=== PATIENT | male | born 1970 | race Caucasian/White ===

== ENCOUNTER 2020-11-29 23:02 | Emergency (ER) | payer OTHER ==
[~2020-11-29 23:02] MED LIST: ETODOLAC500 MG PO; FLEXERIL5 MG PO; IBUPROFEN800 MG PO; MEDROL 4MG DOSEP4 MG PO; MINIPRESS2 MG PO; NAPROXEN500 MG PO; NORCO 5-325 TA1 EACH PO; PRINIVIL20 MG PO
[2020-11-30 00:43] LABS: BASOPHIL 0.1 % (0-2); EOSINOPHIL 0 % (0-5); HCT 48.1 % (42.0-52.0); HGB 15.8 g/dl (13.2-18.0); LYMPHOCYTE 9.9 % (15-48); MCH 29.8 pg (25.0-31.0); MCHC 32.8 g/dL (32.0-36.0); MCV 90.8 fL (78.0-100.0); MONOCYTE 3.3 % (0-12); MPV 10.9 fL (6.0-9.5); NEUTROPHIL 86.2 % (41-80); NRBC 0; PLT 276 K/uL (150-400); RDW 13.5 % (11.5-14.0)
[2020-11-30 00:49] LABS: PRO-BNP 583 pg/mL (<125)
[2020-11-30 00:51] LABS: ALBUMIN 3.6 g/dL (3.4-5.0); BILIRUBIN - TOTAL 0.4 mg/dL (0.2-1.0); BUN/CREAT RATIO (CALC) 17.9 RATIO; CREATININE 0.67 mg/dL (0.67-1.17); GLOBULIN (CALCULATION) 4.6 g/dL; TOTAL PROTEIN 8.2 g/dL (6.4-8.2)
[2020-11-30 01:02] LABS: LACTIC ACID 1.9 mmol/L (0.4-1.9)
[2020-11-30 01:42] LABS: CORONAVIRUS 2019 SARS-COV-2 NEGATIVE (NEGATIVE); INFLUENZA A NAA NEGATIVE (NEGATIVE)
[2020-11-30 04:10] LABS: BILIRUBIN NEGATIVE (NEGATIVE); BLOOD TRACE-INTACT Ery/uL (NEGATIVE); CLARITY CLEAR (CLEAR); COLOR YELLOW (YELLOW); GLUCOSE (U) NORMAL (NORMAL); LEUKOCYTES TRACE Leu/uL (NEGATIVE); NITRITE NEGATIVE (NEGATIVE); PROTEIN NEGATIVE (NEGATIVE); SPECIFIC GRAVITY 1.015 (1.001-1.030); UROBILINOGEN 0.2 mg/dL (0.2-1.0)
[2020-11-30 04:22] LABS: URINARY RBC RARE
[2020-11-30 04:23] LABS: BACTERIA TRACE; SQUAMOUS EPITHELIAL CELLS RARE
[2020-11-30] MEDS ORDERED: ONDANSETRON ODT4 MG SL (05:31)
[2020-11-30] MEDS ORDERED: CIPRO500 MG PO (05:31)
== END 2020-11-30 05:39 | disposition home or self-care (01) ==
LOC: FER 23:02
PROVIDERS: Emergency Medicine Emergency Medical Services
DX: B34.9 Viral infection, unspecified (principal); N30.00 Acute cystitis without hematuria; F17.210 Nicotine dependence, cigarettes, uncomplicated; Z88.0 Allergy status to penicillin; Z88.1 Allergy status to other antibiotic agents; Z20.822 Contact with and (suspected) exposure to COVID-19
CPT/HCPCS: 36415; 71045; 80053; 81001; 82728; 83605; 83615; 83880; 84145; 84484; 85025; 85379; 87040; 87088; 93005; J1885; J1940; J7120; U0002

== ENCOUNTER 2020-12-01 09:57 | Day surgery (SDCO) | payer OTHER ==
[~2020-12-01 09:57] MED LIST changes: +CIPRO500 MG PO; +ONDANSETRON ODT4 MG SL
[2020-12-01 10:16] LABS: BASOPHIL 0.8 % (0-2); EOSINOPHIL 2.5 % (0-5); HCT 47.5 % (42.0-52.0); HGB 15.3 g/dl (13.2-18.0); LYMPHOCYTE 26.3 % (15-48); MCH 30.1 pg (25.0-31.0); MCHC 32.2 g/dL (32.0-36.0); MCV 93.5 fL (78.0-100.0); MONOCYTE 8.7 % (0-12); MPV 10.7 fL (6.0-9.5); NEUTROPHIL 61.2 % (41-80); NRBC 0; PLT 299 K/uL (150-400); RBC 5.08 M/uL (4.70-6.00); RDW 14.1 % (11.5-14.0); WBC 10.1 K/uL (4.0-10.5)
[2020-12-01 10:26] LABS: INR 0.87 (0.9-1.2); PROTHROMBIN TIME 11.2 SECONDS (11.4-13.6)
[2020-12-01 10:32] LABS: ALBUMIN 3.6 g/dL (3.4-5.0); BILIRUBIN - TOTAL 0.4 mg/dL (0.2-1.0); BUN/CREAT RATIO (CALC) 18.9 RATIO; CREATININE 0.9 mg/dL (0.67-1.17); GLOBULIN (CALCULATION) 4.3 g/dL; POTASSIUM 3.9 mmol/L (3.5-5.1); TOTAL PROTEIN 7.9 g/dL (6.4-8.2)
[2020-12-01 11:41] LABS: ECSTASY (MDMA) NEGATIVE (NEGATIVE); MARIJUANA (THC) NEGATIVE (NEGATIVE)
[2020-12-01 11:42] LABS: BARBITURATES NEGATIVE (NEGATIVE); METHADONE NEGATIVE (NEGATIVE); OPIATES NEGATIVE (NEGATIVE)
[2020-12-01 11:43] LABS: AMPHETAMINES POSITIVE (NEGATIVE); OXYCODONE NEGATIVE (NEGATIVE)
[2020-12-02 04:40] LABS: BASOPHIL 0.4 % (0-2); EOSINOPHIL 0.3 % (0-5); HCT 43.4 % (42.0-52.0); HGB 14.2 g/dl (13.2-18.0); LYMPHOCYTE 26.4 % (15-48); MCH 29.7 pg (25.0-31.0); MCHC 32.7 g/dL (32.0-36.0); MCV 90.8 fL (78.0-100.0); MONOCYTE 6.5 % (0-12); MPV 11.1 fL (6.0-9.5); NRBC 0; PLT 265 K/uL (150-400); RBC 4.78 M/uL (4.70-6.00); RDW 13.3 % (11.5-14.0); WBC 11.9 K/uL (4.0-10.5)
[2020-12-02 04:57] LABS: BUN/CREAT RATIO (CALC) 12.2 RATIO; CREATININE 0.74 mg/dL (0.67-1.17); POTASSIUM 3.5 mmol/L (3.5-5.1)
[2020-12-02] MEDS ORDERED: NORVASC5 MG PO (13:15)
[2020-12-02] MEDS ORDERED: PRINIVIL20 MG PO (13:15)
== END 2020-12-02 14:45 | disposition home or self-care (01) ==
LOC: FER 09:57 → FTCU 13:10 → FER 15:25 → FTCU 15:27
PROVIDERS: Emergency Medicine; ADMIT Internal Medicine
DX: R07.89 Other chest pain (principal); F15.10 Other stimulant abuse, uncomplicated; I10 Essential (primary) hypertension; F31.9 Bipolar disorder, unspecified; F20.0 Paranoid schizophrenia; F43.10 Post-traumatic stress disorder, unspecified; F17.210 Nicotine dependence, cigarettes, uncomplicated; F41.9 Anxiety disorder, unspecified; Z79.899 Other long term (current) drug therapy; Z88.0 Allergy status to penicillin; Z88.1 Allergy status to other antibiotic agents
CPT/HCPCS: 36415; 71045; 80048; 80053; 80305; 84484; 85025; 85610; 93005; G0378; J1650; J1885; J2060; J2405; J7030